=== PATIENT | female | born 1985 | race Caucasian/White ===

== ENCOUNTER 2023-10-19 19:28 | Emergency (ER) | payer OTHER, SELFPAY ==
[2023-10-19 19:34] VITALS: BP 153/82; PULSE 101; RESP 18; TEMP 36.6; O2SAT 100; BMI 21.9
--- NOTE | 2023-10-19 19:39 | PC.NURSE ---
PATIENT INJURED HER BACK TWO DAYS AGO WHILE AT WORK. SHE WAS PUTTING CLOTHES INTO A WASHING MACHINE AND FELT A PAIN IN HER RIGHT LOWER BACK. HAS BEEN TAKING TYLENOL AND IBUPROFEN WITH NO RELIEF.
--- NOTE | 2023-10-19 19:46 | XR_ITS ---
The [address] [address] Patient Name: FUNMI RIVERA MRN: [id number] date: 1985 Sex: F Assigned Patient Location: ER Current Patient Location: ER Accession/Order Number: [id number] Exam Date: 10/19/2023 20:19 Report Date: 10/19/2023 20:53 At the request of: TAVARES ROWELL Procedure: XR lumbar spine 2-3V EXAM: XR lumbar spine 2-3V HISTORY: Atraumatic pain COMPARISON: None TECHNIQUE: 3 views lumbar spine FINDINGS: There are 5 nonrib-bearing lumbar-type vertebral bodies. Vertebral body heights and alignment are preserved. No significant degenerative disc height loss. Imaged sacroiliac joints are intact. XR/XR lumbar spine 2-3V IMPRESSION: No acute osseous abnormality of the lumbar spine. Electronically authenticated by: GILLIAN PATIÑO Date: 10/19/2023 20:53
--- NOTE | 2023-10-19 19:48 | ED.BACK1 ---
HPI - Back Pain/Injury General Chief Complaint: Back Pain/Injury Stated Complaint: Back Pain Time Seen by Provider: 10/19/23 19:31 Source: patient Mode of arrival: walk-in History of Present Illness HPI Narrative: 38-year-old female presents for pain to her lower back just to the right of midline. She was bent over reaching into a washer when she was at work to pull out some laundry and felt a pulling sensation in her back. It does not seem to radiate and she has no urinary symptoms such as dysuria or hematuria. It is much worse if she moves. She took Excedrin and Motrin but it did not seem to help much. She does not have a history of lower back problems. Related Data Home Medications ?Medication ?Instructions ?Recorded ?Confirmed dextroamphetamine-amphetamine 20 10/19/23 mg tablet Previous Rx's ?Medication ?Instructions ?Recorded acetaminophen 300 mg-codeine 30 mg 1 tab PO Q6H PRN pain 5 days #20 10/19/23 tablet tabs cyclobenzaprine 10 mg tablet 10 mg PO TID PRN muscle spasm #20 10/19/23 tabs ibuprofen 800 mg tablet 800 mg PO Q8H PRN pain #20 tabs 10/19/23 Allergies Allergy/AdvReac Type Severity Reaction Status Date / Time diphenhydramine AdvReac Mild Verified 10/19/23 19:34 [From Alvaro] Review of Systems ROS Narrative A ten point review of systems is negative except as noted above. Exam Narrative Exam Narrative: Nurses note and vital signs reviewed and patient is not hypoxic. General: The patient appears well and in no apparent distress. Patient is resting comfortably on cart. Skin: Warm, dry, no pallor noted. There is no rash noted. Head: Normocephalic, atraumatic Eye: Normal conjunctiva, no drainage Ears, Nose, Mouth, and Throat: oral mucosa is moist. Nares patent. Cardiovascular: Regular Rate and Rhythm Respiratory: Patient is in no distress, no accessory muscle use, lungs are clear to auscultation, no wheezing, rales or rhonchi Back: She is reluctant to sit forward but is able to do so. She has no focal area of tenderness to palpation and there is no bruise or rash. She has some diffuse tenderness just to the right of midline in her lower back. GI: Soft and nontender Musculoskeletal: The patient has no evidence of calf tenderness, no pitting edema, symmetrical pulses noted bilaterally Neurological: A&O, normal speech, motor strength intact in her lower extremities Psychiatric: Cooperative Constitutional Vital Signs, click to edit/add: Last Vital Signs Temp 97.9 F 10/19/23 19:34 Pulse 101 H 10/19/23 19:34 Resp 18 10/19/23 19:34 BP 153/82 H 10/19/23 19:34 Pulse Ox 100 10/19/23 19:34 O2 Del Method Room Air 10/19/23 19:34 Course Vital Signs Vital signs: Vital Signs Temperature 97.9 F 10/19/23 19:34 Pulse Rate 101 H 10/19/23 19:34 Respiratory Rate 18 10/19/23 19:34 Blood Pressure 153/82 H 10/19/23 19:34 Pulse Oximetry 100 10/19/23 19:34 Oxygen Delivery Method Room Air 10/19/23 19:34 Temperature 97.9 F 10/19/23 19:34 Pulse Rate 101 H 10/19/23 19:34 Respiratory Rate 18 10/19/23 19:34 Blood Pressure 153/82 H 10/19/23 19:34 Pulse Oximetry 100 10/19/23 19:34 Oxygen Delivery Method Room Air 10/19/23 19:34 MDM - Back Pain/Injury MDM Narrative Medical decision making narrative: X-rays per radiologist showed no acute findings. She was given Toradol and Norflex here and prescribed Tylenol 3, Flexeril, and ibuprofen. She was also given a work note. Treatment diagnosis and follow-up were discussed with the patient. Differential Diagnosis Differential diagnosis: Likely strain of lumbar region and other (Compression fracture) Imaging Data Lumbar x-rays: Radiologist's impression: ITS Impressions Lumbar Spine X-Ray 10/19/23 19:46 IMPRESSION: No acute osseous abnormality of the lumbar spine. Electronically authenticated by: GILLIAN PATIÑO Date: 10/19/2023 20:53 Discharge Plan Discharge Stand Alone Forms: Portal Instructions Chief Complaint: Back Pain/Injury Clinical Impression: Strain of lumbar region Patient Disposition: Home, Self-Care Time of Disposition Decision: 21:02 Condition: Good Mode of Transportation: Private Vehicle Prescriptions / Home Meds: New acetaminophen-codeine 300-30 mg tablet 1 tab PO Q6H PRN (Reason: pain) 5 Days Qty: 20 0RF cyclobenzaprine 10 mg tablet 10 mg PO TID PRN (Reason: muscle spasm) Qty: 20 0RF ibuprofen 800 mg tablet 800 mg PO Q8H PRN (Reason: pain) Qty: 20 0RF No Action dextroamphetamine-amphetamine 20 mg tablet Print Language: Gibraltarian Instructions: Low Back Strain (ED) Referrals: Physician,Non-Staff, MD [Primary Care Provider] - 1 week
[2023-10-19] MEDS: ORPHENADRINE 60 MG/ 2 ML VIAL IM (20:05)
[2023-10-19] MEDS: KETOROLAC TROMETHAMINE 60 MG/2 ML VIAL IM (20:05)
== END 2023-10-19 21:14 | disposition home or self-care (01) ==
PROVIDERS: Emergency Provider Emergency Medicine
DX: S39.012A Strain of muscle, fascia and tendon of lower back, initial encounter (principal); X50.9XXA Other and unspecified overexertion or strenuous movements or postures, initial encounter
CPT/HCPCS: 72100; 81001; 96372; 99284

== ENCOUNTER 2025-03-03 15:28 | Outpatient (REF) | payer OTHER, SELFPAY ==
--- OUTSIDE RECORDS SUMMARY | 2025-03-03 13:00 | XMS_ITS | Encounter Summary ---
Author Organization [facility] Address [address] [place] [address] Care Team Providers Care Construction Job Cost Estimator Name Role Phone Unavailable Primary Care Provider Unavailabl e Reason for Visit * Reason Comments Gynecologic Exam Encounter Details Date Type Department Care Team (Latest Contact Info) Description 03/03/2025 1:00 PM EDT Procedure Visit [facility] [address] [facility] [place] [address] Sarahi Colmenares NP [address] [facility] [place] [address] Well woman exam with routine gynecological exam Social History Tobacco Use Types Packs/Day Years Used Date Smoking Tobacco: Never Assessed Comments No Sex and Gender Information Value Date Recorded Sex Assigned at Not on file Legal Sex Female 6:46 PM EDT Gender Identity Not on file Sexual Orientation Not on file documented as of this encounter Last Filed Vital Signs Vital Sign Reading Time Taken Comments Blood Pressure 90/64 03/03/2025 1:14 PM EDT Pulse - - Temperature - - Respiratory Rate - - Oxygen Saturation - - Inhaled Oxygen Concentration - - Weight 51.7 kg (114 lb) 03/03/2025 1:14 PM EDT Height - - Body Mass Index - - documented in this encounter Progress Notes * Sarahi Colmenares NP - 03/03/2025 1:00 PM EDT Reason for Appointment: Patient ID: Sol Graham is a 39 y.o. female who presents for Gynecologic Exam Patient presents today for Annual Exam. MEDICATIONS Current Outpatient Medications Medication Instructions amphetamine-dextroamphetamine (Adderall) 20 MG tablet 1 tablet, Oral, Daily chlorhexidine (Peridex) 0.12 % solution RINSE WITH ONE HALF OUNCE TWICE DAILY clobetasol (Temovate) 0.05 % ointment APPLY TOPICALLY TO THE AFFECTED AREA TWICE DAILY gabapentin (Neurontin) 300 MG capsule TAKE DIRECTED PER OFFICE PROVIDED INSTRUCTIONS UNTIL YOU ARE TAKING 2 CAPSULES THREE TIMES DAILY meloxicam (MOBIC) 15 mg, Daily pregabalin (LYRICA) 100 mg, 3 times daily pregabalin (LYRICA) 150 mg, 3 times daily ALLERGIES Allergies Allergen Reactions Tramadol Other Reaction(s): seizures Had a seizure from this medication. PROBLEMS Active Ambulatory Problems Diagnosis Date Noted No Active Ambulatory Problems Resolved Ambulatory Problems Diagnosis Date Noted No Resolved Ambulatory Problems No Additional Past Medical History HISTORY PAST MEDICAL HISTORY SOCIAL HISTORY No past medical history on file. Social History Tobacco Use Smoking status: Not on file Smokeless tobacco: Not on file Substance Use Topics Alcohol use: Not on file Drug use: Not on file FAMILY HISTORY No family history on file. SURGICAL HISTORY History reviewed. No pertinent surgical history. REVIEW OF SYSTEMS Review of Systems: Review of Systems Constitutional: Negative. HENT: Negative. Eyes: Negative. Respiratory: Negative. Cardiovascular: Negative. Gastrointestinal: Negative. Genitourinary: Negative. Musculoskeletal: Negative. Skin: Negative. Neurological: Negative. All other systems reviewed and are negative. Hematological: Negative. Endocrine: Negative. Allergic/Immunologic: Negative. OBJECTIVE Objective: Physical Exam Constitutional: Appearance: Normal appearance. She is well-developed. Genitourinary: Vulva normal. Breasts: Breasts are soft. Right: Normal. Left: Normal. Cardiovascular: Rate and Rhythm: Normal rate and regular rhythm. Pulmonary: Effort: Pulmonary effort is normal. Breath sounds: Normal breath sounds. Abdominal: General: Bowel sounds are normal. There is no distension. Palpations: Abdomen is soft. Tenderness: There is no abdominal tenderness. There is no guarding or rebound. Musculoskeletal: General: No swelling. Normal range of motion. Right lower leg: No edema. Left lower leg: No edema. Neurological: Mental Status: She is alert and oriented to person, place, and time. Skin: General: Skin is warm and dry. Psychiatric: Mood and Affect: Mood normal. Behavior: Behavior normal. Vitals and nursing note reviewed. Exam conducted with a sky line yarder present. Vitals: There is no height or weight on file to calculate BMI. BP: 90/64 Patient's last menstrual period was 03/03/2025 (exact date). ASSESSMENT & PLAN ICD-10-CM 1. Well woman exam with routine gynecological exam Z01.419 Pap Smear HPV DNA probe, amplified Annual Exam: Patient presents today for an annual exam. Patient states she is doing well and has no complaints. Pap was obtained without difficulty. Orders Placed This Encounter Procedures HPV DNA probe, amplified Follow Up: Patient is to return in one year for annual unless needed otherwise. Documented by Sobeida Cisneros MA on behalf of: Sarahi Colmenares NP documented in this encounter Plan of Treatment Upcoming Encounters Date Type Department Care Team (Late st Contact Info) Description 03/09/2026 2:00 PM EDT Procedure [facility] [address] [facility] [place] [id number] Walter Gabriel DO [address] [place] [address] Scheduled Orders Name Type Priority Associated Diagnoses Orde r Schedule Pap Smear Pathology and Cytology Routine Well woman exam with routine gynecological exam Ordered: 03/03/2025 HPV DNA probe, amplified Microbiology Routine Well woman exam with routine gynecological exam Ordered: 03/03/2025 documented as of this encounter Visit Diagnoses Diagnosis Well woman exam with routine gynecological exam Routine gynecological examination documented in this encounter
--- OUTSIDE RECORDS SUMMARY | 2025-03-03 15:33 | XMS_ITS | Encounter Summary ---
Author Organization [facility] Address [address] [place] [address] Care Team Providers Care Marketing And Development Coordinator Name Role Phone Self Primary Care Provider Unavailabl e Source Comments In the event this information is protected by the Federal Confidentiality of Alcohol and Drug AbusePatient Records regulations: The Federal rules restrict any use of the information to criminally investigate or prosecute any alcohol or drug abuse patient.[facility] Encounter Details Date Type Department Care Team (Late st Contact Info) Description 02/10/2023 Patient [place] [address] Provider, [facility] Visit in [employer] Social History Tobacco Use Types Packs/Day Years Used Date Smoking Tobacco: Never Assessed Comments Unknown Sex and Gender Information Value Date Recorded Sex Assigned at Not on file Legal Sex Female 10:11 AM EDT Gender Identity Not on file Sexual Orientation Not on file documented as of this encounter Plan of Treatment Not on file documented as of this encounter Visit Diagnoses Not on filedocumented in this encounter Care Teams Marketing And Development Coordinator Relationship Specialty Start Date End Date Self PCP - General 02/04/16 documented as of this encounter
--- OUTSIDE RECORDS SUMMARY | 2025-03-03 15:33 | XMS_ITS | Clinical Summary ---
Author Organization [employer] [facility] tem Address [facility] [id number] [address] [place] [address] Care Team Providers Care Meteorological Aide Name Role Phone No Pcp, No Pcp Primary Care Provider Unavailabl e Allergies Active Allergy Reactions Criticality Noted Date Comments No Known Drug Allergies 03/08/2017 Tramadol 12/10/2016 Had a seizure from this medication. Medications * This document contains information received from the source organization and may not represent a complete record from that organization. dextroamphetamin e-amphetamine (ADDERALL) 20 mg tablet Take 5 mg by mouth in the morning. Max Daily Amount: 5 mg. Active Active Problems Problem Noted Date Diagnosed Date Major depressive disorder, recurrent episode, mo derate 03/09/2017 Generalized anxiety disorder 03/09/2017 Panic disorder 03/09/2017 Family History Medical History Relation Name Comments Alzheimer's disease Maternal Grandfather Hypothyroidism Maternal Grandmother Ovarian cancer Maternal Grandmother Seizures Mother Alcohol abuse Paternal Grandfather Seizures Sister Relation Name Status Comments Brother Alive Father Alive Maternal Grandfather Maternal Grandmother Mother Alive Paternal Grandfather Paternal Grandmother Sister Alive Social History Tobacco Use Types Packs/Day Years Used Date Smoking Tobacco: Every Day Cigarettes Smokeless Tobacco: Never Alcohol Use Standard Drinks/Week Comments Yes 0 (1 standard drink = 0.6 oz pur e alcohol) Childcare Answer Date Recorded Childcare Unknown 01/07/2019 Employment Answer Date Recorded Employment Unknown 01/07/2019 Hunger Screening Answer Date Recorded Within the past 12 months we worried whether our food would run out before we got money to buy more. Never True 11/14/2024 Within the past 12 months th e food we bought just didn't last and we didn't have money to get more. Never True 11/14/2024 Purpose - Life Answer Date Recorded Purpose and direction in life Unknown Comments No Sex and Gender Information Value Date Recorded Sex Assigned at Not on file Legal Sex Female 1:42 PM EDT Gender Identity Not on file Sexual Orientation Not on file Last Filed Vital Signs Vital Sign Reading Time Taken Comments Blood Pressure 108/68 11/14/2024 10:30 PM EDT Pulse 98 11/14/2024 7:49 PM EDT Temperature 36.9 C (98.4 F) 11/14/2024 5:55 PM EDT Respiratory Rate 18 11/14/2024 5:55 PM EDT Oxygen Saturation 96% 11/14/2024 10:15 PM EDT Inhaled Oxygen Concentration - - Weight 52.2 kg (115 lb) 11/14/2024 5:55 PM EDT Height 157.5 cm (5' 2 ) 11/14/2024 5:55 PM EDT Body Mass Index 21.03 11/14/2024 5:55 PM EDT Plan of Treatment Upcoming Encounters Date Type Department Care Team (Late st Contact Info) Description 03/10/2025 12:00 PM EDT Office Visit [facility] of [facility] [address] [id number] Prema Lowe MD [address] [address] Health Maintenance Due Date Last Done Comments Tobacco Counseling 1986 Depression Screening 1998 DTaP,Tdap and Td Vaccines (1 - Tdap) 2005 Pap Smear 2007 Influenza Vaccine 03/31/2025 Adult BMI Screening 11/14/2025 11/14/2024 Tobacco Screening 11/14/2025 11/14/2024 Medical Devices Not on file Insurance [employer] MED[employer] Care Teams Meteorological Aide Relationship Specialty Start Date End Date No Pcp, [place] [address] PCP - General Family Medicine 11/14/24
--- OUTSIDE RECORDS SUMMARY | 2025-03-03 15:33 | XMS_ITS | Clinical Summary ---
Author Organization [facility] Address [address] [place], [place] [id number] Care Team Providers Care Solder Making Laborer Name Role Phone Self Primary Care Provider Unavailabl e Social History Tobacco Use Types Packs/Day Years Used Date Smoking Tobacco: Never Assessed Comments Unknown Sex and Gender Information Value Date Recorded Sex Assigned at Not on file Legal Sex Female 10:11 AM EDT Gender Identity Not on file Sexual Orientation Not on file Plan of Treatment Health Maintenance Due Date Last Done Comments Anxiety Screening 2004 Depression Screening 2004 HIV Screening 2004 Hepatitis C Screening 2004 DTaP,Tdap,Td Vaccine (1 - Tdap) 2005 Hepatitis B Vaccine (1 of 3 - 19+ 3-dose series) 06/06 Cervical Cancer Screening 2007 Influenza Vaccine (#1) 2025 Insurance [facility] MEDICAID Care Teams Solder Making Laborer Relationship Specialty Start Date End Date Self PCP - General 02/04/16
--- OUTSIDE RECORDS SUMMARY | 2025-03-03 15:34 | XMS_ITS | Encounter Summary ---
Author Organization [facility] Address [address] [place] [address] Care Team Providers Care Patient Care Associate Name Role Phone Unavailable Primary Care Provider Unavailabl e Encounter Details Date Type Department Care Team (Late st Contact Info) Description 03/03/2025 Bamboo flowsheet [facility] [address] [facility] [place] [address] Sarahi Colmenares, ENSEMBLE MEMBER [address] [place] [address] Social History Tobacco Use Types Packs/Day Years Used Date Smoking Tobacco: Never Assessed Comments No Sex and Gender Information Value Date Recorded Sex Assigned at Not on file Legal Sex Female 6:46 PM EDT Gender Identity Not on file Sexual Orientation Not on file documented as of this encounter Plan of Treatment Upcoming Encounters Date Type Department Care Team (Late st Contact Info) Description 03/09/2026 2:00 PM EDT Procedure Visit [facility] [address] [facility] [place] [address] Walter Gabriel DO [address] [place], [place] [id number] documented as of this encounter Visit Diagnoses Not on filedocumented in this encounter
--- OUTSIDE RECORDS SUMMARY | 2025-03-03 15:34 | XMS_ITS | Clinical Summary ---
Author Organization [facility] Address [address] [place] [address] Care Team Providers Care Fast Food Fry Cook Name Role Phone Unavailable Primary Care Provider Unavailabl e Allergies Active Allergy Reactions Criticality Noted Date Comments Tramadol 12/10/2016 Other Reaction(s): seizures Had a seizure from this medication. Medications amphetamine-dex troamphetamine (Adderall) 20 MG tablet Take 1 tablet by mouth Daily Active chlorhexidine (Peridex) 0.12 % solution RINSE WITH ONE HALF OUNCE TWICE DAILY 5 Active clobetasol (Temovate) 0.05 % ointment APPLY TOPICALLY TO THE AFFECTED AREA TWICE DAILY 5 Active gabapentin (Neurontin) 300 MG capsule TAKE DIRECTED PER OFFICE PROVIDED INSTRUCTIONS UNTIL YOU ARE TAKING 2 CAPSULES THREE TIMES DAILY 5 Active meloxicam (Mobic) 15 MG tablet Take 15 mg by mouth Daily 5 Active pregabalin (Lyrica) 100 MG capsule Take 100 mg by mouth in the morning and 100 mg in the evening and 100 mg before bedtime. 5 Active pregabalin (Lyrica) 150 MG capsule Take 150 mg by mouth in the morning and 150 mg in the evening and 150 mg before bedtime. 5 Active Encounters Date Type Department Care Team Description 03/03/2025 1:00 PM EDT Procedure Visit [facility] [address] [facility] [place] [address] Sarahi Colmenares NP Well woman exam with routine gynecological exam 03/03/2025 Bamboo flowsheet [facility] [address] [facility] [place] [address] Sarahi Colmenares NP from Last 3 Months Social History Tobacco Use Types Packs/Day Years [...] - - Body Mass Index - - Plan of Treatment Upcoming Encounters Date Type Department Care Team (Late st Contact Info) Description 03/09/2026 2:00 PM EDT Procedure Visit [facility] [address] [facility] [place] [address] Walter Gabriel DO [address] [place] [address] [place], [place] [phone] Insurance [employer]
[2025-03-05 14:08] LABS: Age Gdln ACOG Testing Note (.); IGP, Aptima HPV, rfx 16/18,45 Note (.)
== END 2025-03-03 15:29 | disposition home or self-care (01) ==
LOC: LAB 15:28
PROVIDERS: Visit Provider Nurse Practitioner Family
DX: Z01.419 Encounter for gynecological examination (general) (routine) without abnormal findings (principal)
CPT/HCPCS: 87624; 88175